=== PATIENT | male | born 1970 | race Caucasian/White ===

== ENCOUNTER 2016-11-17 23:19 | Emergency (ER) | payer BC, OTHER ==
[~2016-11-17] VITALS: Ht 185.4 cm; Wt 93.0 kg
--- NOTE | 2016-11-17 23:57 | PD ---
HPI Chief Complaint: psychiatric evaluation Time Seen by Provider: 23:54 Travel History International Travel<30 days: No Contact w/Intl Traveler<30days: No History of Present Illness HPI Patient comes in under a [place] act by police after his called stating that he took unknown amount of unknown pills per Holt act. Patient denies taking any pills. Patient states that he was drinking tonight. Patient denies any homicidal or suicidal ideations. Patient denies any medical concerns this time. Denies any chest pain, shortness of breath, nausea, vomiting, abdominal pain, fevers, headache, loss or change in bowel or bladder, numbness or tingling anywhere. Patient reports he takes Ritalin and Prilosec as prescribed to him. [facility] Past Medical History ADD: Yes Social History Alcohol Use: Yes Tobacco Use: No Substance Use: No Allergies-Medications (Allergen,Severity, Reaction): Coded Allergies: No Known Allergies (Unverified , 11/18/16) Reported Meds & Prescriptions Reported Meds & Active Scripts Active Reported Concerta (Methylphenidate HCl) 18 Mg Luis 20 Mg PO BID Prilosec (Omeprazole Magnesium) 20 Mg Tab 40 Mg PO DAILY Review of Systems Except as stated in HPI: all other systems reviewed are Neg Physical Exam Narrative GENERAL: Well-developed, overly nourished, in no acute distress, and non-ill appearing. SKIN: Focused skin assessment warm and dry. HEAD: Atraumatic. Normocephalic. EYES: Pupils equal and round. EOMI. No scleral icterus. No injection or drainage. ENT: No nasal bleeding or discharge. Mucous membranes pink and moist. NECK: Trachea midline. Supple. No nuclear rigidity. CARDIOVASCULAR: Regular rate and rhythm. No murmur appreciated. RESPIRATORY: No accessory muscle use. No respiratory distress. Clear to auscultation. Breath sounds equal bilaterally. MUSCULOSKELETAL: No obvious deformities. No clubbing. No cyanosis. No edema. Full range of motion. NEUROLOGICAL: Awake and alert. No obvious cranial nerve deficits. Motor grossly within normal limits. Normal speech. PSYCHIATRIC: Appropriate mood and affect; insight and judgment normal. Data Data Last Documented VS Vital Signs Date Time Temp Pulse Resp B/P Pulse Ox O2 Delivery O2 Flow Rate FiO2 11/18/16 03:00 61 16 130/75 100 Room Air 11/18/16 00:04 98.5 Orders Complete Blood Count With Diff (11/17/16 23:46) Comprehensive Metabolic Panel (11/17/16 23:46) Psych Screen (11/17/16 23:46) Drug Screen, Random Urine (11/17/16 23:46) Alcohol (Ethanol) (11/17/16 23:46) Salicylates (Aspirin) (11/17/16 23:46) Tylenol (Acetaminophen) (11/17/16 23:46) Iv Access Insert/Monitor (11/17/16 23:59) Ecg Monitoring (11/17/16 23:59) Oximetry (11/17/16 23:59) Electrocardiogram (11/17/16 23:59) Salicylates (Aspirin) (11/18/16 03:43) Tylenol (Acetaminophen) (11/18/16 03:43) Labs Laboratory Tests Test 11/18/16 11/18/16 11/18/16 00:15 00:20 04:00 White Blood Count 7.4 TH/MM3 Red Blood Count 5.12 MIL/MM3 Hemoglobin 16.0 GM/DL Hematocrit 45.3 % Mean Corpuscular Volume 88.5 FL Mean Corpuscular Hemoglobin 31.2 PG Mean Corpuscular Hemoglobin 35.3 % Concent Red Cell Distribution Width 12.7 % Platelet Count 269 TH/MM3 Mean Platelet Volume 8.5 FL Neutrophils (%) (Auto) 58.1 % Lymphocytes (%) (Auto) 30.1 % Monocytes (%) (Auto) 10.3 % Eosinophils (%) (Auto) 0.9 % Basophils (%) (Auto) 0.6 % Neutrophils # (Auto) 4.3 TH/MM3 Lymphocytes # (Auto) 2.2 TH/MM3 Monocytes # (Auto) 0.8 TH/MM3 Eosinophils # (Auto) 0.1 TH/MM3 Basophils # (Auto) 0.0 TH/MM3 CBC Comment DIFF FINAL Differential Comment Sodium Level 140 MEQ/L Potassium Level 3.6 MEQ/L Chloride Level 107 MEQ/L Carbon Dioxide Level 22.9 MEQ/L Anion Gap 10 MEQ/L Blood Urea Nitrogen 12 MG/DL Creatinine 1.18 MG/DL Estimat Glomerular Filtration 66 ML/MIN Rate Random Glucose 97 MG/DL Calcium Level 9.3 MG/DL Total Bilirubin 0.7 MG/DL Aspartate Amino Transf 17 U/L (AST/SGOT) Alanine Aminotransferase 40 U/L (ALT/SGPT) Alkaline Phosphatase 102 U/L Total Protein 7.7 GM/DL Albumin 4.2 GM/DL Salicylates Level LESS THAN 1.7 LESS THAN 1.7 MG/DL MG/DL Acetaminophen Level LESS THAN 2.0 LESS THAN 2.0 MCG/ML MCG/ML Ethyl Alcohol Level 73 MG/DL Urine Opiates Screen NEG Urine Barbiturates Screen NEG Urine Amphetamines Screen POS Urine Benzodiazepines Screen NEG Urine Cocaine Screen NEG Urine Cannabinoids Screen NEG MDM Medical Decision Making Medical Screen Exam Complete: Yes Emergency Medical Condition: Yes Interpretation(s) EKG reviewed by Dr. Perea shows normal sinus rhythm with ventricular rate of 63. No STEMI. Differential Diagnosis Homicidal, suicidal, electrolyte abnormality, overdose, other Narrative Course IV was established, placed on cardiac exercise specialist, and labs/EKG ordered. 0230 patient reassessed found to be resting comfortably in bed in no acute distress. Vital signs stable on cardiac monitoring. Patient was seen and examined. Labs were reviewed. Patient's repeat Tylenol and salicylate level remained undetectable. Patient's vital signs of been stable while being observed in the emergency department for 6 hours. Appears unlikely patient took a lethal dose of a medication. Patient medically cleared for further treatment and evaluation by psych. Final disposition per psych. Diagnosis Primary Impression: Medical clearance for psychiatric admission Condition: Stable Say Rodrigues Nov 17, 2016 23:57
[2016-11-18 00:04] VITALS: BP 118/64; PULSE 73; RESP 16; TEMP 98.5; O2SAT 96
[2016-11-18] MEDS ORDERED: PRIL20TA2 PO (00:13)
[2016-11-18] MEDS ORDERED: METH18 PO (00:13)
[2016-11-18 00:58] VITALS: RESP 18; O2SAT 98
[2016-11-18 00:59] LABS: AMPHETAMINE, URINE POS (NEG); BARBITURATES, URINE NEG (NEG); COCAINE, URINE NEG (NEG)
[2016-11-18 01:04] LABS: ALT (GPT) 40 U/L (12-78); ANION GAP 10 MEQ/L (5-15); AST (GOT) 17 U/L (15-37); BICARBONATE 22.9 MEQ/L (21.0-32.0); BLOOD UREA NITROGEN 12 MG/DL (7-18); CHLORIDE 107 MEQ/L (98-107); GLOMERULAR FILTRATION RATE 66 ML/MIN (>89); POTASSIUM 3.6 MEQ/L (3.5-5.1); SODIUM (NA) 140 MEQ/L (136-145)
[2016-11-18 01:07] LABS: ALKALINE PHOSPHATASE 102 U/L (45-117); TOTAL BILIRUBIN ADULT 0.7 MG/DL (0.2-1.0)
[2016-11-18 01:10] LABS: AUTOMATED NEUTROPHIL # 4.3 TH/MM3 (1.8-7.7); BASOPHIL % 0.6 % (0.0-2.0); EOSINOPHIL # 0.1 TH/MM3 (0-0.4); EOSINOPHIL % 0.9 % (0.0-4.0); HEMATOCRIT 45.3 % (39.0-51.0); HEMO FLAGS DIFF FINAL; LYMPH % 30.1 % (9.0-44.0); LYMPHOCYTE # 2.2 TH/MM3 (1.0-4.8); MEAN CELL VOLUME 88.5 FL (80.0-100.0); MEAN CORPUSCULAR HEMOGLOBIN 31.2 PG (27.0-34.0); MEAN CORPUSCULAR HGB CONC 35.3 % (32.0-36.0); MONO % 10.3 % (0.0-8.0); NEUT % 58.1 % (16.0-70.0); PLATELET COUNT 269 TH/MM3 (150-450); RED BLOOD COUNT 5.12 MIL/MM3 (4.50-5.90); RED CELL DISTRIBUTION WIDTH 12.7 % (11.6-17.2); WHITE BLOOD COUNT 7.4 TH/MM3 (4.0-11.0)
[2016-11-18 01:23] LABS: ACETAMINOPHEN LESS THAN 2.0 MCG/ML (10.0-30.0)
[2016-11-18 03:00] VITALS: BP 130/75; PULSE 61; RESP 16; O2SAT 100
[2016-11-18 07:39] VITALS: BP 129/76; PULSE 66; RESP 18; O2SAT 97
[2016-11-18 12:24] VITALS: BP 160/93; PULSE 58; RESP 18; TEMP 97.6; O2SAT 97
--- NOTE | 2016-11-18 15:37 | PD ---
History of Present Illness Chief Complaint: Psychiatric Symptoms Time Seen by Provider: 15:05 Travel History International Travel<30 Days: No Contact w/Intl Traveler<30days: No Known affected area: No Legal Status Legal Status: Holt Act Holt Act Signed By: Edna Lora History of Present Illness: History of Present Illness HPI Patient is a 46 year old male with hx of ADHD, currently on amphetamines, who is under a BA for allegedly taking an unknown amount of pills and stating that he was going to slit his wrists. comes in under a [place] act by police after his called stating that he took unknown amount of unknown pills per Holt act. The incidence occurred in context of an argument with his . he had also been drinking during the daytime. BAL on presentation is 73. The patient has no previous psychiatric history and no contact with [facility] psychiatry dept. he has been monitored here in [facility] and has presented no suicidality. He is alert, calm, cooperative. There is no psychosis and no significant psychiatric symptomatology. He denies taking any pills and denies any suicidal ideation. States that he has too many things to live for including his job, his 2 daughters as well as his mother. He also states I would not want to hurt my either". he admits that he is sad over the divorce but that he still has m,any things in his life to look forward to. PFSH Past Medical History ADD: Yes ADHD: Yes GERD: Yes Tetanus Vaccination: Unknown Influenza Vaccination: No Past Surgical History Abdominal Surgery: Yes (HERNIA REPAIR) Psychiatric History Psychiatric History Hx Psychiatric Treatment: PATIENT DENIES Does receive tretament for ADHD History of Inpatient Treatment: No Guns or firearms in home: No Social History x 22 year. has 2 daughters. 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 Hx Alcohol Use: Yes Hx Tobacco Use: No Hx Substance Use: No (PT DENIES) Hx of Substance Use Treatment: No Family Psychiatric History Negative Allergies-Medications (Allergen,Severity, Reaction): Coded Allergies: No Known Allergies (Unverified , 11/18/16) Reported Meds & Prescriptions Reported Meds & Active Scripts Active Reported Concerta (Methylphenidate HCl) 18 Mg Luis 20 Mg PO BID Prilosec (Omeprazole Magnesium) 20 Mg Tab 40 Mg PO DAILY Review of Systems Except as stated in HPI: all other systems reviewed are Neg Exam Alert: Yes [place]: Person (ox4) Mood: Calm Affect: Appropriate Speech: Clear, Logical Eye Contact: Normal Memory Intact: Comment (not impaired) Hallucinations: Other (negative) Delusions: No Suicidal: Ideation (denies any) Homicidal: Ideation (denies any) Insight/Judgement Fair. Not impaired. [facility] Medical Decision Making Medical Record Reviewed: Yes Assessment/Plan 46 year old male under a BA for allegedly taking pills and threatening to cut his wrist. he did not make any attempt at hurting himself. States that he was involved in an argument with his over divorce issues and she called the police. he denies that he made any attempt at taking any pills and denies that he is in any way suicidal. Staff have obtained collateral information from family. He presents with adequate protective factors, is future oriented and contracts for safety. At this time me he presents no criteria for BA and based on available clinical information presents no imminent risk to self. BA lifted. To return to [facility] if any changes. Orders Complete Blood Count With Diff (11/17/16 23:46) Comprehensive Metabolic Panel (11/17/16 23:46) Psych Screen (11/17/16 23:46) Drug Screen, Random Urine (11/17/16 23:46) Alcohol (Ethanol) (11/17/16 23:46) Salicylates (Aspirin) (11/17/16 23:46) Tylenol (Acetaminophen) (11/17/16 23:46) Iv Access Insert/Monitor (11/17/16 23:59) Ecg Monitoring (11/17/16 23:59) Oximetry (11/17/16 23:59) Electrocardiogram (11/17/16 23:59) Salicylates (Aspirin) (11/18/16 03:43) Tylenol (Acetaminophen) (11/18/16 03:43) Diet Regular Basic (11/18/16 Breakfast) Diet Regular Basic (11/18/16 Lunch) Diet Regular Basic (11/18/16 Dinner) Results Vital Signs Date Time Temp Pulse Resp B/P Pulse Ox O2 Delivery O2 Flow Rate FiO2 11/18/16 12:24 97.6 58 18 160/93 97 Room Air 11/18/16 07:39 66 18 129/76 97 Room Air 11/18/16 03:00 61 16 130/75 100 Room Air 11/18/16 00:58 18 98 Room Air 11/18/16 00:04 98.5 73 16 118/64 96 Laboratory Tests Test 11/18/16 11/18/16 11/18/16 00:15 00:20 04:00 White Blood Count 7.4 Red Blood Count 5.12 Hemoglobin 16.0 Hematocrit 45.3 Mean Corpuscular Volume 88.5 Mean Corpuscular Hemoglobin 31.2 Mean Corpuscular Hemoglobin 35.3 Concent Red Cell Distribution Width 12.7 Platelet Count 269 Mean Platelet Volume 8.5 Neutrophils (%) (Auto) 58.1 Lymphocytes (%) (Auto) 30.1 Monocytes (%) (Auto) 10.3 Eosinophils (%) (Auto) 0.9 Basophils (%) (Auto) 0.6 Neutrophils # (Auto) 4.3 Lymphocytes # (Auto) 2.2 Monocytes # (Auto) 0.8 Eosinophils # (Auto) 0.1 Basophils # (Auto) 0.0 CBC Comment DIFF FINAL Differential Comment Sodium Level 140 Potassium Level 3.6 Chloride Level 107 Carbon Dioxide Level 22.9 Anion Gap 10 Blood Urea Nitrogen 12 Creatinine 1.18 Estimat Glomerular Filtration 66 Rate Random Glucose 97 Calcium Level 9.3 Total Bilirubin 0.7 Aspartate Amino Transf 17 (AST/SGOT) Alanine Aminotransferase 40 (ALT/SGPT) Alkaline Phosphatase 102 Total Protein 7.7 Albumin 4.2 Salicylates Level LESS THAN 1.7 LESS THAN 1.7 Acetaminophen Level LESS THAN 2.0 LESS THAN 2.0 Ethyl Alcohol Level 73 Urine Opiates Screen NEG Urine Barbiturates Screen NEG Urine Amphetamines Screen POS Urine Benzodiazepines Screen NEG Urine Cocaine Screen NEG Urine Cannabinoids Screen NEG Diagnosis Primary Impression: Medical clearance for psychiatric admission Additional Impression: Adjustment disorder Psychiatrically Cleared: Yes Med/ Other Pt Specific Info: No Meds Exist/No RX given Disposition: 01 DISCHARGE HOME Condition: Stable Problem Qualifiers Additional Impression: Adjustment disorder Qualified Code: F43.20 - Adjustment disorder, unspecified type Enid AbramsP Nov 18, 2016 15:36
--- NOTE | 2016-11-18 15:59 | EKG ---
Date Performed: 11/18/2016 Time Performed: 00:31:25 PTAGE: 46 years EKG: Sinus rhythm MINIMAL VOLTAGE CRITERIA FOR LVH, CONSIDER NORMAL VARIANT BORDERLINE ECG NO PREVIOUS TRACING DOCTOR: Jarett Marr Interpretating Date/Time 11/18/2016 15:58:30
== END 2016-11-18 16:06 | disposition home or self-care (01) ==
LOC: NEPD 23:19 → NEPJ 11-18 16:06
DX: F43.20 Adjustment disorder, unspecified (principal); K21.9 Gastro-esophageal reflux disease without esophagitis; Z79.899 Other long term (current) drug therapy
CPT/HCPCS: 80053; 80307; 85025; 93005; 99284